=== PATIENT | female | born 1990 | race Caucasian/White ===

== ENCOUNTER → 2016-08-01 | Outpatient (CLI) | payer BC ==
[~2016-08-01] MED LIST: ASCA500 PO; CETI10TA10 PO; IBUP600T44 PO; IRON FORMULA OR
[2016-08-01 16:56] LABS: PREG INTERNAL NEGATIVE QC NEG CLEAR BACKGROUND; PREG INTERNAL POSITIVE QC POS CONTROL LINE
[2016-08-01 17:33] LABS: PROLACTIN 6.14 ng/mL
== END | disposition home or self-care (01) ==
LOC: C.LAB1850 15:51
PROVIDERS: ATTEND Obstetrics & Gynecology
DX: N91.1 Secondary amenorrhea (principal)

== ENCOUNTER → 2016-09-05 | Outpatient (CLI) | payer BC ==
--- NOTE | 2016-09-05 15:22 | DIAGNOSTIC IMAGING REPORT ---
KUB CLINICAL HISTORY: Constipation. FINDINGS: 2 AP supine abdominal radiographs are obtained. No prior studies are available for comparison at the time of dictation. There is a nonobstructed abdominal bowel gas pattern. Moderate colonic fecal retention is observed. There is no evidence of intraperitoneal free air on these supine views. Pelvic phleboliths are noted. The bony structures appear intact. IMPRESSION: Moderate constipation. Electronically signed by: Harris Zambrano M.D. 09/05/2016 3:20 PM Dictated Date/Time: 09/05/2016 3:20 PM
== END | disposition home or self-care (01) ==
LOC: C.RAD 14:01
PROVIDERS: ATTEND Nurse Practitioner Family
DX: K59.00 Constipation, unspecified (principal)

== ENCOUNTER → 2016-09-07 | Outpatient (CLI) | payer BC ==
--- NOTE | 2016-09-07 11:45 | DIAGNOSTIC IMAGING REPORT ---
[facility] ultrasound GALLBLADDER-ABD LIMITED CLINICAL HISTORY: RUQ PAIN nausea TECHNIQUE: Ultrasound COMPARISON STUDY: None FINDINGS: Normal gallbladder. Common bile duct 4 mm. Liver is uniform. Pancreas and right kidney are unremarkable. IMPRESSION: Normal study Electronically signed by: Jayant Hussein M.D. 09/07/2016 11:43 AM Dictated Date/Time: 09/07/2016 11:42 AM
--- NOTE | 2016-09-07 12:20 | DIAGNOSTIC IMAGING REPORT ---
ULTRASOUND OF THE PELVIS CLINICAL HISTORY: Right pelvic pain. COMPARISON STUDY: No priors. TECHNIQUE: Real-time, grayscale, and color flow sonography of the pelvis is performed both transabdominally and endovaginally. Images are reviewed in the transverse and longitudinal planes. FINDINGS: Uterus: The uterus is normal in size and echotexture, measuring 6.6 x 2.6 x 4.7 cm. Endometrium: The endometrium is normal in appearance, and the endometrial stripe is normal in thickness measuring up to 0.3 cm. Ovaries: The ovaries are normal in size and morphology. The right ovary measures 3.3 x 1.7 x 2.1 cm and the left ovary measures 2.7 x 1.9 x 2.1 cm. Normal Doppler waveforms are shown within both ovaries. Pelvis: There is trace free fluid in the cul-de-sac. No concerning adnexal lesion is seen. IMPRESSION: 1. No acute sonographic abnormality is identified in the pelvis. 2. Trace free fluid in cul-de-sac is likely within physiologic limits. Electronically signed by: Harris Zambrano M.D. 09/07/2016 12:19 PM Dictated Date/Time: 09/07/2016 12:17 PM
== END | disposition home or self-care (01) ==
LOC: C.ULTR 10:28
PROVIDERS: ATTEND Nurse Practitioner Family
DX: R10.11 Right upper quadrant pain (principal); R10.2 Pelvic and perineal pain

== ENCOUNTER → 2016-11-23 | Outpatient (CLI) | payer BC | END | disposition home or self-care (01) | LOC: C.PAPS 13:57 | PROVIDERS: ATTEND Obstetrics & Gynecology | DX: Z01.419 Encounter for gynecological examination (general) (routine) without abnormal findings (principal) ==